=== PATIENT | female | born 2000 | race Caucasian/White ===

== ENCOUNTER 2021-01-19 10:47 | Outpatient (REF) | payer MEDICARE, MEDICAID, SELFPAY ==
[2021-01-19 13:43] LABS: MANUAL DIFF FLAG NO
[2021-01-19 13:54] LABS: Basophils Percent Auto 0.8 % (0-2); Eosinophils Absolute Auto 0.1 X10*3/uL (0.0-0.4); Eosinophils Percent Auto 2.5 % (0-4); Hematocrit 37.3 % (37-47); Hemoglobin 12.4 g/dl (12.0-16.0); Imm Gran Abs Auto 0.01 X10*3/uL (0.00-0.03); Imm Gran Pct Auto 0.2 % (0.0-0.4); Lymphocytes Percent Auto 38.5 % (20-40); Mean Corpuscular HGB Conc 33.2 g/dl (31.0-35.0); Mean Corpuscular Hemoglobin 30.2 pg (27.0-33.0); Mean Platelet Volume 11.7 fL (9.4-12.3); Monocytes Absolute Auto 0.4 X10*3/uL (0.1-1.2); Neutrophils Absolute Auto 2.7 X10*3/uL (2.0-8.3); Platelet Count 189 X10*3/uL (160-400); Red Cell Distribution Width 12.8 % (11.0-16.0); White Blood Count 5.3 X10*3/uL (4.8-10.8)
[2021-01-19 14:42] LABS: Alanine Aminotransferase 10 U/L (0-31); Albumin Level 4.6 g/dL (3.5-5.0); Alkaline Phosphatase 46 U/L (39-117); Anion Gap 11 (12-20); Aspartate Amino Transferase 17 U/L (5-31); Bilirubin Total 0.8 mg/dL (0.0-1.0); Blood Urea Nitrogen 13 mg/dL (9-16); Calcium 9.3 mg/dL (8.4-10.2); Carbon Dioxide 24 mmol/L (22-29); Chloride 107 mmol/L (96-108); Cholesterol 115 mg/dL; Estimated Glomerular Filt Rate > 60; Glucose Fasting 76 mg/dL (60-99); HDL Cholesterol 49 mg/dL; Iron 109 mcg/dL (30-160); LDL Cholesterol Calculated 59 mg/dl; Percent Iron Saturation 34 % (15-50); Potassium 4.4 mmol/L (3.3-5.1); Sodium 138 mmol/L (135-145); Total Iron Binding Capacity 324 mcg/dL (228-428); Total Protein 7.4 g/dL (6.5-8.0); Triglycerides 36 mg/dL; Unsaturated Iron Binding 215 ug/dL
[2021-01-19 14:45] LABS: TSH reflex Free T4 0.93 uIU/mL (0.32-4.0); Vitamin D 25-OH Total 14.2 ng/mL (>30)
[2021-01-19 14:50] LABS: Rheumatoid Factor < 15.0 IU/mL (<15.0)
[2021-01-19 15:34] LABS: Syphilis Screen Nonreactive (Nonreactive)
[2021-01-20 08:44] LABS: HBc Num1 0.05 S/CO (0.00-0.79); HBsAGNum1 0.18 S/CO (0.00-0.99); HIV AB/AG Nonreactive (Nonreactive); Hepatitis B Core Antibody Nonreactive (Nonreactive); Hepatitis B Surface Antigen Negative (Negative)
[2021-01-20 08:50] LABS: HBS Num1 0.62 mIU/mL (0-7.99); ~Hepatitis B Surface Antibody NONREACTIVE (Nonreactive)
[2021-01-20 09:15] LABS: ~HepC Num1 0.07 S/CO (0.00-0.79); ~Hepatitis C Antibody Nonreactive (Nonreactive)
[2021-01-23 11:46] LABS: Anti Nuclear Antibody Screen POSITIVE (NEGATIVE)
== END 2021-01-19 10:48 | disposition home or self-care (01) ==
LOC: HO.HMGCLDS 10:47
PROVIDERS: PCP Internal Medicine; Visit Provider Internal Medicine
DX: Z00.00 Encounter for general adult medical examination without abnormal findings (principal); Z11.3 Encounter for screening for infections with a predominantly sexual mode of transmission; Z84.0 Family history of diseases of the skin and subcutaneous tissue; Z82.61 Family history of arthritis
CPT/HCPCS: 36415; 80053; 80061; 82306; 83540; 84443; 85025; 86038; 86039; 86431; 86704; 86706; 86780; 86803; 87340; 87389

== ENCOUNTER 2021-02-02 14:35 | Outpatient (REF) | payer MEDICARE, MEDICAID, SELFPAY ==
--- NOTE | ~2021-02-02 | US_ITS ---
EXAMINATION: US DIAGNOSTIC ULTRASOUND BREAST, LEFT CLINICAL INFORMATION: 21-year-old with chronic palpable mass upper outer left breast for over one year. Patient perceives probable increase in size. No prior imaging. COMPARISON: None. TECHNIQUE: Ultrasound left breast is targeted to the area of clinical concern. Grayscale imaging and color Doppler are performed without and with harmonics. FINDINGS: The palpable finding 1:00 position 8 cm from nipple corresponds to a macrolobulated solid circumscribed mass measuring 2.2 x 0.7 x 1.7 cm. There is scattered internal color flow on Doppler. There is no skin thickening or edema tracking in soft tissue planes. No focal duct ectasia or architectural abnormality. Results are discussed with the patient and her mother at time of visit. The palpable finding most likely represents a benign fibroadenoma. Management options are discussed. Since the finding is believed to have slowly increased in size and is currently 2.2 cm in greatest dimension, ultrasound-guided core biopsy would be reasonable to confirm fibroadenoma. If this is not performed, then serial follow-up ultrasound would be recommended to document stability. At this time, patient and her mother prefer serial ultrasound follow-up. US/US breast LT limited IMPRESSION: Solid macrolobulated circumscribed mass 1:00 position 2.2 x 0.7 x 1.7 cm, likely fibroadenoma. ASSESSMENT: BI-RADS 3: Probably Benign RECOMMENDATION: Consider ultrasound-guided core sampling. If biopsy is not anticipated, then short interval six-month follow-up diagnostic left breast ultrasound would be recommended. This patient's information was entered into a reminder system with a target due date for their next breast imaging.
== END 2021-02-02 14:36 | disposition home or self-care (01) ==
LOC: HO.MAMMO 14:35
PROVIDERS: Visit Provider Internal Medicine
DX: N63.21 Unspecified lump in the left breast, upper outer quadrant (principal)
CPT/HCPCS: 76642

== ENCOUNTER 2021-08-05 13:59 | Outpatient (REF) | payer MEDICARE, MEDICAID, SELFPAY ==
--- NOTE | ~2021-08-05 | US_ITS ---
EXAMINATION: US DIAGNOSTIC ULTRASOUND BREAST, LEFT CLINICAL INFORMATION: 21-year-old with probable fibroadenoma for short interval six-month follow-up. COMPARISON: Targeted ultrasound left breast 02/02/2021. TECHNIQUE: Ultrasound left breast is targeted to the upper breast. Grayscale imaging and color Doppler are performed without and with harmonics. FINDINGS: The probable fibroadenoma 1:00 position 8 cm from nipple is similar in size and contour and echogenicity to initial ultrasound 02/02/2021. There is no interval new dominant mass or architectural abnormality or focal duct ectasia. Current measurements are 2.3 x 0.6 x 1.6 cm. Prior measurements are 2.2 x 0.7 x 1.7 cm. Results are discussed with the patient and her mother at time of visit. US/US breast LT limited IMPRESSION: Stable mass 1:00 left breast, likely fibroadenoma. ASSESSMENT: BI-RADS 3: Probably Benign RECOMMENDATION: 1 year follow-up targeted left breast ultrasound, due in 6 months. This patient's information was entered into a reminder system with a target due date for their next breast imaging.
== END 2021-08-05 14:00 | disposition home or self-care (01) ==
LOC: HO.MAMMO 13:59
PROVIDERS: Visit Provider Internal Medicine
DX: N63.21 Unspecified lump in the left breast, upper outer quadrant (principal)
CPT/HCPCS: 76642

== ENCOUNTER 2022-02-01 13:08 | Outpatient (REF) | payer MEDICARE, MEDICAID, SELFPAY ==
--- NOTE | ~2022-02-01 | US_ITS ---
EXAMINATION: US DIAGNOSTIC ULTRASOUND BREAST, BILATERAL CLINICAL INFORMATION: Six-month follow-up left breast lesion 1 o'clock position 8 cm from the nipple as well as bilateral breast bloody discharge. COMPARISON: 08/05/2021 and 02/02/2021. TECHNIQUE: Ultrasound of the breasts were performed with real-time laboy scale imaging and color Doppler. FINDINGS: There is again noted to be a stable circumscribed hypoechoic lesion with distal sound enhancement and no distal sound shadowing which has internal vascularity. It measures approximately 1.8 x 1.5 x 0.7 cm in size where previously it measured 2.2 x 0.7 x 1.7 cm on study of 02/02/2021 and 2.3 x 0.6 x 1.6 cm in size on study of 08/05/2021. No duct ectasia, or edema in the soft tissue planes is seen bilaterally. Recommend clinical follow-up for the bilateral nipple discharge. Results are discussed with the patient at time of visit. US/US breast LT limited IMPRESSION: Stable appearance of left breast mass which likely represents a fibroadenoma. One-year follow-up study is suggested. ASSESSMENT: BI-RADS 3: Probably Benign. RECOMMENDATION: Diagnostic ultrasound in 12 months. Clinical follow-up for bilateral breast bloody nipple discharge. This patient's information was entered into a reminder system with a target due date for their next ultrasound.
--- NOTE | ~2022-02-01 | US_ITS ---
EXAMINATION: US DIAGNOSTIC ULTRASOUND BREAST, BILATERAL CLINICAL INFORMATION: Left breast mass. Bilateral nipple discharge.. COMPARISON: February 01, 2022 and studies dating back to February 02, 2021. TECHNIQUE: Ultrasound of the breast is performed with real-time laboy scale imaging and color Doppler. FINDINGS: Right breast: There is no solid mass, architectural abnormality, duct ectasia, abnormal filling defects within a duct, or edema in the soft tissue planes. Left breast: There is again noted to be a stable circumscribed hypoechoic lesion with distal sound enhancement and no distal sound shadowing which has internal vascularity. It measures approximately 1.8 x 1.5 x 0.7 cm in size where previously it measured 2.2 x 0.7 x 1.7 cm on study of 02/02/2021 and 2.3 x 0.6 x 1.6 cm in size on study of 08/05/2021. No duct ectasia, or edema in the soft tissue planes is seen bilaterally. Recommend clinical follow-up for the bilateral nipple discharge. Results are discussed with the patient at time of visit. US/US breast RT limited IMPRESSION: Stable appearance of left breast mass which likely represents a fibroadenoma. One-year follow-up study is suggested. No retroareolar abnormality appreciated bilaterally. ASSESSMENT: BI-RADS 3: Probably Benign. RECOMMENDATION: Diagnostic ultrasound in 12 months. Clinical follow-up for bilateral breast bloody nipple discharge. This patient's information was entered into a reminder system with a target due date for their next ultrasound.
== END 2022-02-01 13:09 | disposition home or self-care (01) ==
LOC: HO.MAMMO 13:08
PROVIDERS: PCP Internal Medicine; Visit Provider Internal Medicine
DX: N63.20 Unspecified lump in the left breast, unspecified quadrant (principal); N64.52 Nipple discharge
CPT/HCPCS: 76642

== ENCOUNTER → 2022-12-21 14:28 | Outpatient (BNVA) | payer MEDICARE, MEDICAID, SELFPAY | PROVIDERS: PCP Internal Medicine; Visit Provider Surgery | DX: N63.21 Unspecified lump in the left breast, upper outer quadrant (principal) | CPT/HCPCS: 99202 ==

== ENCOUNTER → 2023-03-07 11:00 | Outpatient (BNV) | payer MEDICARE, MEDICAID, SELFPAY | PROVIDERS: PCP Internal Medicine; Visit Provider Radiology Diagnostic Radiology | DX: D24.9 Benign neoplasm of unspecified breast (principal) | CPT/HCPCS: 76642 ==

== ENCOUNTER 2023-03-07 11:27 | Outpatient (REF) | payer MEDICARE, MEDICAID, SELFPAY ==
--- NOTE | ~2023-03-07 | US_ITS ---
EXAMINATION: US DIAGNOSTIC ULTRASOUND BREAST, LEFT CLINICAL INFORMATION: 6 month interval follow-up (fourth, to complete two-year stability) left breast oval mass at the 1:00 position. COMPARISON: 02/01/2022, 08/05/2021, 02/02/2021. TECHNIQUE: Ultrasound of the left breast is performed with real-time laboy scale imaging and color Doppler. FINDINGS: There is a stable oval circumscribed hypoechoic mass with good through transmission, a small amount of internal color Doppler signal, wider than tall, at the 1:00 axis left breast, 4 cm from the nipple, currently measuring 2.2 x 0.9 x 2.0 cm (previously reported at 1.8 x 1.5 x 0.7 cm, and on baseline exam 2.3 x 0.6 x 1.6 cm). This finding is most consistent with a stable fibroadenoma and is benign. No further follow-up deemed necessary. Results were discussed with the patient at time of visit. US/US breast LT limited mamm only IMPRESSION: Stable left breast 1:00 fibroadenoma, which has now been stable over a two-year period indicating benignity. No further follow-up recommended. Clinical management advised as indicated. ASSESSMENT: BI-RADS 2: Benign RECOMMENDATION: 1. Patient should be managed based on the clinical impression. 2. Otherwise, routine annual screening mammography at age 41. This patient's information was entered into a reminder system with a target due date for their next mammogram.
== END 2023-03-07 11:28 | disposition home or self-care (01) ==
LOC: HO.MAMMO 11:27
PROVIDERS: PCP Internal Medicine; Visit Provider Internal Medicine
DX: N63.21 Unspecified lump in the left breast, upper outer quadrant (principal)
CPT/HCPCS: 76642

== ENCOUNTER 2023-04-06 11:23 | Outpatient (AMB) | payer MEDICARE, MEDICAID, SELFPAY ==
[2023-04-06 11:34] VITALS: BP 110/68; PULSE 61; O2SAT 99; BMI 17.0
--- NOTE | 2023-04-06 11:34 | A.OFFPC_ITS ---
Vital Signs 04/06/23 11:34 Height 5 ft 4 in Weight 99 lb 4 oz BMI 17.0 BP 110/68 Blood Pressure Location Lt brachial Position Sitting Pulse 61 Pulse Source Pulse Oximeter Pulse Oximetry (%) 99 Oxygen Delivery Method Room Air Intake Visit Reasons: Breathing different/Post COVID/Beginning Feb Intake Note: pt says since she had covid she has a cough that she will see drops of blood in her hand when she coughs and she stats she has been breathing different Allergies apple [APPLE] Allergy (Intermediate, Unverified 07/03/23 23:30) SWELLING pineapple [PINEAPPLE] Allergy (Intermediate, Unverified 07/03/23 23:30) SWELLING SEASONAL ALLERGIES Allergy (Mild, Uncoded 07/03/23 23:30) UNKNOWN Medication List - Last Reconciled 07/03/23 by Peggy Rosario MD No Known Home Meds Tobacco use date assessed: 04/06/23 Dental Screening Dental Screen Date: 04/06/23 Did you have a dental visit in the last 12 months?: No Did you have a dental problem in the last 6 months where you did not have access to dental care?: No Was dental information given to patient?: No HPI Breathing different/Post COVID/Beginning Sept HPI Details 23-year-old lady here today complaining of a lingering cough since she contracted COVID a month ago, accompanied by difficulty taking a deep breath, after coughing. 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 Positive SHYLA (antinuclear antibody) Family history of rheumatoid arthritis Family history of lupus erythematosus Breast mass, left Family History Father Mental health disorder Mother Rheumatoid arthritis SLE (systemic lupus erythematosus related syndrome) Hyperthyroidism Essential hypertension Social History Housing: Apartment Housing Other:: pt lives with mother Alcohol intake: current Patient Tobacco Use Status: Never used Tobacco e-Cigarette/Vaping Use: Never Used Second Hand Smoke Exposure: No service: No Current occupational status: unemployed Cognitive needs: No Hearing needs: No Vision needs: No Female Reproductive History Menstrual Age of Menarche: 13 Questionnaire PHQ-9 Over the last 2 weeks, how often have you been bothered by any of the following problems? 1. Little interest or pleasure in doing things: not at all 2. Feeling down, depressed, or hopeless: not at all 3. Trouble falling or staying asleep, or sleeping too much: more than half the days 4. Feeling tired or having little energy: not at all 5. Poor appetite or overeating: not at all 6. Feeling bad about yourself - or that you are a failure or have let yourself or your family down: not at all 7. Trouble concentrating on things, such as reading the newspaper or watching television: not at all 8. Moving or speaking so slowly that other people could have noticed. Or the opposite - being so fidgety or restless that you have been moving around a lot more than usual: not at all 9. Thoughts that you would be better off or of hurting yourself in some way: not at all Total score: 2 Depression Screening Interpretation: Negative Depression Screening Done: Yes 25417 - PHQ-9 Billing: Yes Source: Developed by Drs. Neel Lagunas, Hoa Pirde, Simon Jacques and colleagues, with an educational carmina from [employer]. Thrive Questionnaire Date Thrive assessed: 04/06/23 I am a: Patient What is your living situation today?: I have a steady place to live Within the past 12 months, did the food you bought not last and you didn't have the money to get more?: Never true Within the past 12 months, did you worry whether your food would run out before you got money to buy more?: Never true Do you have trouble paying for medicines?: No Do you have trouble getting transportation to medical appointments?: No Do you have trouble paying your heating and electricity bill?: No Do you have trouble taking care of your child, family member or friend?: No Do you have trouble with day-to-day activities such as bathing, preparing meals, shopping, managing finances, etc.?: No Are you currently unemployed and looking for a job?: No Are you interested in more education?: No AUDIT C Alcohol Use Questionnaire (AUDIT-C) 1. How often do you have a drink containing alcohol?: Monthly or less 2. How many drinks containing alcohol do you have on a typical day when you are drinking?: 1 or 2 3. How often do you have six or more drinks on one occasion?: Never Total Score: 1 OPAL-7 AMB Questionnaire OPAL-7 Date OPAL - 7 assessed: 04/06/23 Feeling nervous, anxious, or on edge: 0 = Not at all Not being able to stop or control worryin = Not at all Worrying too much about different things: 1 = Several days Trouble relaxin = Several days Being so restless that it is hard to sit still: 1 = Several days Becoming easily annoyed or irritable: 1 = Several days Feeling afraid as if something awful might happen: 0 = Not at all Total OPAL-7 score (0-4 normal; 5-9 mild; 10-14 moderate; 15-21 severe): 4 Source: Developed by Drs. Neel Lagunas, Hoa Pride, Simon Jacques and colleagues, with an educational carmina from [employer]. OPAL-7 Assessment Billing OPAL-7 Assessment Tool: OPAL-7 Assessment 37138 Review of Systems Const Reports as per HPI and Reports no additional complaints ENT Reports no additional complaints Card Denies chest pain, Denies chest pain with activity, Denies syncope, Denies rapid heart rate, Denies irregular heart rhythm, Denies lightheadedness and Denies dyspnea on exertion Resp Denies chest congestion, Denies pain on inspiration, Denies dyspnea on exertion and Denies wheezing GI Reports no additional complaints Musc Reports no additional complaints Neuro Denies syncope Psych Reports no additional complaints Endo Reports no additional complaints Nicolas/Lymph Reports no additional complaints Aller/Immun Denies wheezing Physical exam (Primary Care) Vital Signs: Last Vital Signs Pulse 61 04/06/23 11:34 BP 110/68 04/06/23 11:34 Pulse Ox 99 04/06/23 11:34 Oxygen Delivery Method Room Air 04/06/23 11:34 BMI result Body Mass Index 17.0 Tobacco/Smoking Status: Tobacco use Status Tobacco use date assessed 04/06/23 04/06/23 11:40 Patient Tobacco Use Status Never used Tobacco 04/06/23 11:40 e-Cigarette/Vaping Use Never Used 04/06/23 11:40 PHQ-9: PHQ-9 Score PHQ-9: Total score 2 07/03/23 23:35 Depression Screening Interpretation: Negative Thrive Assessment: Date of Thrive Assessment Date Thrive assessed 04/06/23 04/06/23 11:49 Const Other: Alert oriented x3, no acute distress noted, ambulatory normal gait Orientation/consciousness: patient oriented x3 HENMT Mouth: Normal oral and palatal mucosa present, tongue normal, oropharynx normal and moist mucous membranes Neck Neck: Yes normal visual inspection, Yes full ROM and Yes no lymphadenopathy Thyroid: Thyroid normal Resp Auscultation: clear to auscultation bilaterally Cardio Other: S1-S2 present, regular rate and rhythm GI Other: Normal bowel sounds, soft, nontender Skin General skin exam: no rashes or lesions noted Neuro General: patient oriented x3, tone normal, moves all extremities, Normal light touch and pain sensation, no focal motor deficits and CN's II-XI intact bilaterally Extrem General: Yes full ROM, Yes no joint enlargement, Yes no clubbing, cyanosis or edema, Yes no calf tenderness and Yes normal gait Assessment and Plan Assessment & Plan (1) 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: Code(s): R05.3 - Chronic cough; U09.9 - Post COVID-19 condition, unspecified Plan: Ordered chest x-ray and CBC with differential, patient given reassurance that cough is most likely post inflammatory effect of previous COVID infection Orders: Orders XR chest 2V 04/06/23 R05.3 - Chronic cough, U09.9 - Post COVID-19 condition, unspecified Complete Blood Count Auto Diff 04/06/23 R05.3 - Chronic cough, U09.9 - Post COVID-19 condition, unspecified Coding Level of Care Code Est Pt Level 3 (59463) Diagnoses [id number] syndrome manifesting as chronic cough R05.3; U09.9 Additional Codes OPAL-7 Assessment Billing - OPAL-7 Assessment Tool: OPAL-7 Assessment 61590 ([id number])
== END 2023-04-06 12:21 | disposition home or self-care (01) ==
LOC: HO.HMGC 11:23
PROVIDERS: PCP Internal Medicine; Visit Provider Internal Medicine
DX: R05.3 Chronic cough (principal); U09.9 Post COVID-19 condition, unspecified
CPT/HCPCS: 99213

== ENCOUNTER 2023-06-19 15:28 | Outpatient (AMB) | payer MEDICARE, MEDICAID, SELFPAY ==
--- NOTE | 2023-06-19 15:48 | A.OFFVIS_ITS ---
Intake Vital Signs 06/19/23 15:57 Height 5 ft 4 in Weight 95 lb 6 oz BMI 16.4 BP 112/67 Blood Pressure Location Lt brachial Position Sitting Pulse 84 Intake Visit Reasons: left breast mass, 6 month follow up Intake Note: Patient is seen in office for 6 month follow up visit, breast exam. Pt c/o: feels that the lump comes and goes, denies pain or discomfort, redness, discoloration mm:03/07/23 Quality Process Engineer Required: No Accompanied by: Self / Same As Patient Allergies apple [APPLE] Allergy (Intermediate, Unverified 04/26/23 14:45) SWELLING pineapple [PINEAPPLE] Allergy (Intermediate, Unverified 04/26/23 14:45) SWELLING SEASONAL ALLERGIES Allergy (Mild, Uncoded 04/26/23 14:45) UNKNOWN HPI HPI Comments History of Present Illness Details 23-year-old female patient returning for his 6 month follow-up exa mination after previous evaluation in December 2022. She noted a lump in the left breast at the 2 o'clock position which was 1st identified when she was 18 years old. She underwent evaluation with ultrasounds several times over the last few years. No significant change in the size or shape of the lesion is noted. Findings were felt to be consistent with fibroadenoma. She denies a previous history of breast problems or breast surgery in her family history is negative for breast cancer. She denies any significant change since her last evaluation. [facility] Medical History [id number] syndrome manifesting as chronic cough Positive SHYLA (antinuclear antibody) Family history of rheumatoid arthritis Family history of lupus erythematosus Breast mass, left Family History Father Mental health disorder Mother Rheumatoid arthritis SLE (systemic lupus erythematosus related syndrome) Hyperthyroidism Essential hypertension Social History Housing: Apartment Housing Other:: pt lives with mother Alcohol intake: current Patient Tobacco Use Status: Never used Tobacco e-Cigarette/Vaping Use: Never Used Second Hand Smoke Exposure: No service: No Current occupational status: unemployed Cognitive needs: No Hearing needs: No Vision needs: No Female Reproductive History Menstrual Age of Menarche: 13 Review of Systems Const All systems reviewed & are unremarkable except as noted in HPI and below Physical Exam Vital Signs: Last Vital Signs Pulse 84 06/19/23 15:57 BP 112/67 06/19/23 15:57 BMI result Body Mass Index 16.4 Const General: no acute distress Nutritional Appearance: well nourished Orientation/consciousness: patient oriented x3 Limitations: no limitations HEENT Head: Yes normocephalic and Yes atraumatic Ears: hearing grossly normal bilaterally Chest Other: Left breast with palpable nodule located in the 2 o'clock position, 1.5 cm, smooth margins, mobile within the breast tissue without fixation to skin or chest wall. Findings are most consistent with a fibroadenoma. There is slight tenderness to palpation. Resp Effort & Inspection: normal respiratory effort Skin Other: Warm, dry, no rash Neuro General: patient oriented x3 Extrem General: Yes no clubbing, cyanosis or edema Assessment & Plan Assessment & Plan (1) Fibroadenoma: Code(s): D24.9 - Benign neoplasm of unspecified breast Qualifiers: Laterality: left Qualified Code(s): D24.2 - Benign neoplasm of left breast (2) Breast mass, left: Code(s): N63.20 - Unspecified lump in the left breast, unspecified quadrant Qualifiers: Breast mass location: unspecified quadrant Qualified Code(s): N63.20 - Unspecified lump in the left breast, unspecified quadrant Plan 23-year-old female patient with a stable palpable lump in the left breast felt to be a fibroadenoma by ultrasound. On examination she does have a palpable mass which is rubbery mobile within the breast tissue consistent with a fibroma. There has been no significant change in the past 6 months in the patient is uninterested in excision this time. She was encouraged to continue to perform self examinations and call for any concerns. Coding Level of Care Code Est Pt Level 3 (15010) Diagnoses Fibroadenoma of left breast D24.2 Laterality: left Mass of left breast, unspecified quadrant N63.20 Breast mass location: unspecified quadrant
[2023-06-19 15:57] VITALS: BP 112/67; PULSE 84; BMI 16.4
== END 2023-06-19 16:01 | disposition home or self-care (01) ==
PROVIDERS: PCP Internal Medicine; Visit Provider Surgery
DX: D24.2 Benign neoplasm of left breast (principal)
CPT/HCPCS: 99213

== ENCOUNTER → 2023-06-19 15:28 | Outpatient (BNVA) | payer MEDICARE, MEDICAID, SELFPAY | PROVIDERS: PCP Internal Medicine; Visit Provider Surgery | DX: D24.2 Benign neoplasm of left breast (principal) | CPT/HCPCS: 99212 ==

== ENCOUNTER 2024-08-08 11:47 | Outpatient (AMB) | payer MEDICARE, MEDICAID, SELFPAY ==
--- NOTE | 2024-08-08 11:58 | AM.OFFWIN_ITS ---
Intake Vital Signs 08/08/24 12:04 BP 100/62 Blood Pressure Location Lt brachial Position Sitting Pulse 72 Pulse Source Pulse Oximeter Pulse Oximetry (%) 98 Oxygen Delivery Method Room Air Intake Visit Reasons: EP-whole body rash Intake Note: Patient here for for hives/rash all over body that has been present for about 1 month, not always itchy and pretty dry patches. Patient Tobacco Use Status: Never used Tobacco Allergies apple [APPLE] Allergy (Intermediate, Unverified 08/08/24 12:04) SWELLING pineapple [PINEAPPLE] Allergy (Intermediate, Unverified 08/08/24 12:04) SWELLING SEASONAL ALLERGIES Allergy (Mild, Uncoded 08/08/24 12:04) UNKNOWN Do you need a note to return to daycare/school/sports/work: No HPI HPI Comments History of Present Illness Details History of Present Illness - The patient is a 24-year-old female pr esenting with a skin rash. - The rash was first noticed one month a go on the right arm and subsequently spread to the patient's back, chest, and neck. Denies rash on her legs. - The rash is characterized as dry, scal y patches, with occasional itching, particularly exacerbated by hot water exposure. - The patient denies introducing new soa ps, detergents, or lotions but notes a potential link to recently worn but unwashed clothing. - Despite mild pruritus, the rash has no t significantly worsened in extent or severity. Physical Exam General: Cooperative, healthy appearing, comfortable, no acute distress and well developed Orientation: Patient oriented x3 Limitations: No limitations Head: Normal to inspection Ears: Hearing grossly normal bilaterally Nose: Normal external nose present Face and sinus: Normal facial exam Eyes: Appearance normal, both eyes and all related structures Neck: Normal visual inspection and Yes full ROM Respiratory: Normal respiratory effort and able to speak in complete sentences. Skin: Dry, scaly 0.5cm circular erythematous rash; 2 to 3 spots on left upper and inner arm, 5-6 on left side neck/chest, 2 to 3 spots on right mid back Neuro: Patient oriented x3 Extremities: Normal to inspection [facility] Medical History [id number] syndrome manifesting as chronic cough Positive SHYLA (antinuclear antibody) Family history of rheumatoid arthritis Family history of lupus erythematosus Breast mass, left Family History Father Mental health disorder Mother Rheumatoid arthritis SLE (systemic lupus erythematosus related syndrome) Hyperthyroidism Essential hypertension Social History Housing: Apartment Housing Other:: pt lives with mother Alcohol intake: current Patient Tobacco Use Status: Never used Tobacco e-Cigarette/Vaping Use: Never Used Second Hand Smoke Exposure: No service: No Current occupational status: unemployed Cognitive needs: No Hearing needs: No Vision needs: No Female Reproductive History Menstrual Age of Menarche: 13 Review of Systems Const All systems reviewed & are unremarkable except as noted in HPI and below Physical Exam Vital Signs: Last Vital Signs Pulse 72 08/08/24 12:04 BP 100/62 08/08/24 12:04 Pulse Ox 98 08/08/24 12:04 Oxygen Delivery Method Room Air 08/08/24 12:04 Assessment & Plan Assessment & Plan (1) Atopic dermatitis, mild: Code(s): L20.9 - Atopic dermatitis, unspecified Plan: Initiate topical corticosteroid therapy with moderate potency to manage the presentation of atopic dermatitis. The approach includes mitigating potential allergens or irritants, such as ensuring that all new clothing is washed before use. Emphasize the importance of reducing hot water exposure to prevent rash/eczema exacerbation. The treatment plan should address both potential allergic causes and eczema, with a follow-up if there is no improvement or wor sening condition. Patient was informed and verbally consented to the use of an ambient scribe for clinic note documentation during this visit. Medications: New triamcinolone acetonide 0.1% 1 appl topical BID 30 grams 0RF Coding Level of Care Code Est Pt Level 3 (96916) Diagnoses Atopic dermatitis, mild L20.9
[2024-08-08 12:04] VITALS: BP 100/62; PULSE 72; O2SAT 98
--- OUTSIDE RECORDS SUMMARY | 2024-08-08 12:48 | XMS_ITS | Clinical Summary ---
Author Organization [employer] Address [address] [place] [address] Care Team Providers Care Cleaning Crew Member Name Role Phone Unavailable Primary Care Provider Unavailabl e Active Problems No known active problems Social History Tobacco Use Types Packs/Day Years Used Date Smoking Tobacco: Never Assessed Comments Unknown Sex and Gender Information Value Date Recorded Sex Assigned at Female 01/15/2024 8:08 AM EDT Legal Sex Female 8:07 AM EDT Gender Identity Female 01/15/2024 8:08 AM EDT Sexual Orientation Straight 01/15/2024 8: 13 AM EDT Plan of Treatment Upcoming Encounters Date Type Department Care Team (Late st Contact Info) Description 09/17/2024 10:00 AM EDT Office Visit [facility] [address] [place] [address] Kunal Turner Health Maintenance Due Date Last Done Comments Chlamydia and Gonorrhea Screening 2001 Dental Oral Exam 2001 Dental Prophylaxis 2001 Depression Screening 2001 HIV Screening 2001 SDOH Screening 2001 Alcohol/Substance Use Screening 2013 Tobacco Screening 2013 Family Planning (PISQ) 01/26/2016 HPV Vaccines (1 - 3-dose series) 01/26/2016 Hepatitis C Screening 2019 DTaP/Tdap/Td Vaccines (1 - Tdap) 01/26/2020 Hepatitis B Vaccines (1 of 3 - 19+ 3-dose series) 01/26/2020 Pap Smear 2022 COVID-19 Vaccine ( - 2023-2 5 season) 2024 Influenza Vaccine (#1) 2024 Dental X-Ray: Bitewings 01/15/2025 01/15/2024 Dental X-Ray: Full Mouth 01/15/2027 01/15/2024 Zoster Vaccines (1 of 2) 2051 RSV Patients and Pa tients Aged 60 years or older (1 - 1-dose 75+ series) 01/26/2076 HIB Vaccines Aged Out No longer eligi ble based on patient's age to complete this topic Hepatitis A Vaccines Aged Out No long er eligible based on patient's age to complete this topic IPV Vaccines Aged Out No longer eligi ble based on patient's age to complete this topic Meningococcal Vaccine Aged Out No hugo marcelo eligible based on patient's age to complete this topic Pneumococcal Vaccine: Pediat rics (0 to 5 Years) and At-Risk Patients (6 to 49) Years) Aged Out No longer elig ible based on patient's age to complete this topic RSV under 20 months Aged Out No longe r eligible based on patient's age to complete this topic Rotavirus Vaccines Aged Out No longer eligible based on patient's age to complete this topic Procedures Procedure Name Priority Date/Time Associated Diagnosis Comments PANORAMIC RADIOGRAPHIC IMAGE Routine 01/15/2024 11:30 AM EDT BITEWING - SINGLE RADIOGRAPHIC IMAGE Routine 01/15/2024 11:30 AM EDT from Last 3 Months or Most Recently Relevant to Health Maintenance Insurance [facility] MEDICAID STAND ADULT
--- OUTSIDE RECORDS SUMMARY | 2024-08-08 12:48 | XMS_ITS | Clinical Summary ---
Author Organization [facility] [address] [place] [address] [place] [address] Phone Care Team Providers Care Infant Room Teacher Name Role Phone Physician, No Pcp Primary Care Provider Unavaila ble Allergies No known active allergies Medications levonorgestreL (MIRENA) 21 mcg/24hr (up to 8 yrs) 52 mg IUD 1 Each by Intrauterine route Once. 2 07/08/19 27 Active Active Problems Problem Noted Date Diagnosed Date Cyst of left breast 05/27/2024 Encounters Date Type Department Care Team Description 07/02/2024 9:46 AM EST - 07/02/2024 11:59 PM EST Hospital Encounter Radiology Department - [address] [phone] Discharge Disposition: Home or Self Care 07/02/2024 Telephone Obstetrics and Gynecology - [address] [phone] Shannon Suazo, CHELSEA 05/30/2024 Telephone Obstetrics and Gynecology - [address] [phone] Brandi Meyers MD Breast Problem 05/27/2024 2:45 PM EST Office Visit Obstetrics and Gynecology - [address] [phone] Brandi Meyers MD Encounter for gynecological examination with abnormal finding (Primary Dx); Screening for cervical cancer; Cyst of left breast 05/20/2024 3:45 PM EST Office Visit Obstetrics and Gynecology - [address] [phone] Shannon Suazo, CNM Breakthrough bleeding with IUD (Primary Dx); Abnormal uterine bleeding; IUD (intrauterine device) in place from Last 3 Months Surgical History Surgery Date Site/Laterality Comments OTHER SURGICAL HISTORY PROCEDURE: DENIES PREVIOUS SURGERY Medical History Medical History Date Comments Anxiety disorder DX:Anxiety diso rder Family History Medical History Relation Name Comments Breast cancer Neg Hx Colon cancer Neg Hx Ovarian cancer Neg Hx Pancreatic cancer Neg Hx Prostate cancer Neg Hx Uterine cancer Neg Hx Social History Tobacco Use Types Packs/Day Years Used Date Smoking Tobacco: Never Smokeless Tobacco: Never Alcohol Use Standard Drinks/Week Comments Never 0 (1 standard drink = 0.6 oz pur e alcohol) Comments No Sex and Gender Information Value Date Recorded Sex Assigned at Not on file Legal Sex Female 8:27 AM EST Gender Identity Not on file Sexual Orientation Not on file Obstetrics History Para Term AB IAB SAB Ectopic Multiple Livin g Live Births 1 1 1 0 Date Outcome GA Total Labor Labor/2nd/3rd Weight Sex Type Anes PTL Christa A1 A5 Name Clin 2018 SAB Last Filed Vital Signs Vital Sign Reading Time Taken Comments Blood Pressure 110/72 05/27/2024 3:01 PM EST Pulse 89 05/27/2024 3:01 PM EST Temperature - - Respiratory Rate 16 05/27/2024 3:01 PM EST Oxygen Saturation - - Inhaled Oxygen Concentration - - Weight 48 kg (105 lb 12.8 oz) 05/27/2024 3:01 PM EST Height 162.6 cm (5' 4 ) 05/27/2024 3:01 PM EST Body Mass Index 18.16 05/27/2024 3:01 PM EST Plan of Treatment Upcoming Encounters Date Type Department Care Team (Late st Contact Info) Description 08/29/2024 10:15 AM EDT Procedure visit Obstetrics and Gynecology [address] [phone] Brandi Meyers MD [address] [place], [place] Health Maintenance Due Date Last Done Comments COVID-19 Vaccine (#1) 2006 HPV Vaccines (1 - Risk 3-dos e series) 01/26/2012 Meningococcal B Vacine (1 of 2 - Standard) 2017 DTaP,Tdap,and Td Vaccines (1 - Tdap) 01/26/2020 Hepatitis B Vaccines (1 of 3 - 19+ 3-dose series) 01/26/2020 Pneumococcal Vaccine: Pediatrics (0 to 5 Years) and At-Risk Patients (6 to 64 Years) (1 of 2 - PCV) 01/26/2020 Depression Screening 05/21/2022 HIV Screening 05/21/2022 Hepatitis C Screening 05/21/2022 Medicare Annual Wellness Visit 05/21/2022 Social Influencers of Health Screening 05/21/2022 Influenza Vaccine (#1) 2024 Gonorrhea/Chlamydia Screening 05/20/2025, 08/03/2021 Cervical Cancer Screening: P ap Smear 05/27/2027 05/27/2024 HIB Vaccines Aged Out No longer eligi ble based on patient's age to complete this topic Hepatitis A Vaccines Aged Out No long er eligible based on patient's age to complete this topic IPV Vaccines Aged Out No longer eligi ble based on patient's age to complete this topic MMR Vaccines Aged Out No longer eligi ble based on patient's age to complete this topic Meningococcal ACWY Vaccine Aged Out N o longer eligible based on patient's age to complete this topic RSV Immunization Patients Under 20 months Aged Out No longer eligible b ased on patient's age to complete this topic Varicella Vaccines Aged Out No longer eligible based on patient's age to complete this topic Procedures Procedure Name Priority Date/Time Associated Diagnosis Comments US PELVIS NON OB COMPLETE W TRANSVAGINAL Routine 07/02/2024 10:20 AM EST Breakthrough bleeding with IUD Abnormal uterine bleeding PAP SMEAR Routine 05/27/2024 4:07 PM EST Screening for cervical cancer TRICHOMONAS VAGINALIS ANTIGEN Routine 05/20/2024 4:16 PM EST Breakthrough bleeding with IUD Abnormal uterine bleeding CHLAMYDIA TRACHOMATIS AND NEISSERIA GONORRHOEAE PCR Routine 05/20/2024 4:16 PM EST Breakthrough bleeding with IUD Abnormal uterine bleeding POC , URINE DIAGNOSTIC Routine 05/20/2024 4:10 PM EST Breakthrough bleeding with IUD Abnormal uterine bleeding from Last 3 Months Results * US Pelvis Non OB Complete w Transvaginal (07/02/2024 10:20 AM EST) Anatomical Region Laterality Modality Body, Pelvis Ultrasound 07/02/2024 10:4 4 AM EST Narrative 07/02/2024 10:51 AM EST Pelvic ultrasound. History abnormal uterine bleeding. Patient is IUD. No prior studies are available for comparison. Examination was performed transabdominally and transvaginally. Color Doppler ultrasound and duplex analysis of the ovarian vasculature was performed. Transvaginal study was limited due to insufficient bladder emptying and patient discomfort. Uterus was visualized measuring 8.3 x 3.2 x 4.3 cm. No focal lesions were identified within the uterus IUD wasn't better seen on transabdominal scan it appears to be in the lower uterine segment with superior and approximately 1.9 cm inferior to the fundal endometrium. Right ovary was visualized with a volume of 10.3 cc. There is arm small hypoechoic mass measuring 1.6 x 1.9 x 1.4 cm which could represent corpus luteum cyst. Normal arterial and venous flow was documented. Left ovary was visualized was normal size and echogenicity, volume 2 cc. Normal arterial and venous flow was documented in the left ovary. CONCLUSIONS: Abnormal position of the IUD. Provider was informed by secure message at the time of dictation. -------- FINAL REPORT -------- Dictated By: Elba Chavez Dictated Date: 07/02/2024 10:44 ET Assigned Physician: Elba Chavez Reviewed and Electronically Signed By: Elba Chavez Signed Date: 07/02/2024 10:51 ET Workstation ID: [id number] Transcribed By: Self Edit Transcribed Date: 07/02/2024 10:44 ET Procedure Note Elba Chavez MD - 07/02/2024 Pelvic ultrasound. History abnormal uterine bleeding. Patient is IUD. No prior studies are available for comparison. Examination was performed transabdominally and transvaginally. ColorDoppler ultrasound and duplex analysis of the ovarian vasculature wasperformed. Transvaginal study was limited due to insufficient bladderemptying and patient discomfort. Uterus was visualized measuring 8.3 x 3.2 x 4.3 cm. No focal lesions wereidentified within the uterus IUD wasn't better seen on transabdominal scanit appears to be in the lower uterine segment with superior andapproximately 1.9 cm inferior to the fundal endometrium. Right ovary wasvisualized with a volume of 10.3 cc. There is arm small hypoechoic massmeasuring 1.6 x 1.9 x 1.4 cm which could represent corpus luteum cyst.Normal arterial and venous flow was documented. Left ovary was visualizedwas normal size and echogenicity, volume 2 cc. Normal arterial and venousflow was documented in the left ovary. CONCLUSIONS: Abnormal position of the IUD. Provider was informed by securemessage at the time of dictation. -------- FINAL REPORT -------- Dictated By: Elba Chavez Dictated Date: 07/02/2024 10:44 ET Assigned Physician: Elba Chavez Reviewed and Electronically Signed By: Elba Chavez Signed Date: 07/02/2024 10:51 ET Workstation ID: [id number] Transcribed By: Self Edit Transcribed Date: 07/02/2024 10:44 ET us Shannon Suazo CNM IMG US PROCEDURES Final Result * Pap smear (05/27/2024 4:07 PM EST) Interpretation Negative for intraepithelial lesion or malignancy 06/03/2024 3:16 PM EST [facility] General Categorization Negative 06/03/2024 3:16 PM EST [facility] LMP 05/17/2024 06/03/2024 3:16 PM EST [facility] Specimen Adequacy Satisfactory for evaluation, endocervical/cota sformation zone component absent 06/03/2024 3:16 PM [facility] Pap Methodology Liquid Based Pap Test 06/03/2024 3:16 PM [facility] Disclaimer The Pap test is a screening test which carries an inherent false negative rate. These test results should be correlated with the patient's clinical findings and history. This Pap test was processed using an automated screening system. Technical cytopathology services provided by [facility], at [address] [place] [address] (CLIA # [id number]/Brenton Arrington MD, Manager Store.) 06/03/2024 3:16 PM [facility] Console Pap Interpretation Reported 06/03/2024 3:16 PM [facility] Brushing/Spatula Cervix uteri structure / Unknown 05/27/2024 4:07 PM EST 05/27/2024 4:07 PM EST Brandi Meyers MD LAB CYTOLOGY ORDERABLES Fin al Result Performing Organization Address City/[facility]/ZIP Co de Phone Number [facility] [address] [place] [address], * Trichomonas vaginalis antigen (05/20/2024 4:16 PM EST) Trichomonas vaginalis Negative Negative 05/20/2024 8:57 PM [facility] Swab Vaginal structure / Unknown Non-blood Collection / Unknown 05/20/2024 4:16 PM EST 05/20/2024 4:16 PM EST Shannon Suazo CNM LAB MICROBIOLOGY - GENE RAL ORDERABLES Final Result Performing Organization Address City/[facility]/ZIP Co de Phone Number [facility] [address] [place] [address], [place] [phone] * Chlamydia trachomatis and Neisseria gonorrhoeae molecular study (05/20/2024 4:16 PM EST) Neisseria gonorrhoeae PCR Negative Negative LAB MOLECULAR DIAGNOSTICS METHOD 05/21/2024 9:58 AM EST [facility] Chlamydia trachomatis PCR Negative Negative LAB MOLECULAR DIAGNOSTICS METHOD 05/21/2024 9:58 AM EST [facility] Swab Endocervical structure / Unknown Non-blood Collection / Unknown 05/20/2024 4:16 PM EST 05/20/2024 4:16 PM EST Shannon Suazo CNM LAB MICROBIOLOGY - GENE RAL ORDERABLES Final Result [facility] [address] [place] [address], * POC , urine manually resulted (05/20/2024 4:10 PM EST) HCG, Ur POC Negative Negative POC hCG Int QC Pass? Yes Yes Urine Urine specimen obtained by clean catch procedure / Unknown 05/20/2024 4:10 PM EST Shannon Suazo CNM POINT OF CARE TEST ENTE R/EDIT ORDERABLES Final Result from Last 3 Months Insurance MEDICARE MEDICAID - [place] Care Teams Infant Room Teacher Relationship Specialty Start Date End Date Physician, No Pcp PCP - General 07/02/24
== END 2024-08-08 12:52 | disposition home or self-care (01) ==
PROVIDERS: PCP Internal Medicine; Visit Provider Physician Assistant
DX: L20.9 Atopic dermatitis, unspecified (principal)

== ENCOUNTER → 2024-08-08 11:47 | Outpatient (BNVA) | payer MEDICARE, MEDICAID, SELFPAY | PROVIDERS: PCP Internal Medicine | DX: L20.9 Atopic dermatitis, unspecified (principal) | CPT/HCPCS: 99212 ==

== ENCOUNTER 2024-10-14 13:03 | Outpatient (AMB) | payer MEDICARE, MEDICAID, SELFPAY ==
--- NOTE | 2024-10-14 13:16 | A.OFFPC_ITS ---
Vital Signs 10/14/24 13:26 10/14/24 13:29 Height 5 ft 4 in Weight 106 lb 105 lb BMI 18.0 BP 110/70 Blood Pressure Location Lt brachial Position Sitting Respiration 16 Pulse 69 Pulse Source Pulse Oximeter Temp 98.3 F Temp Source Oral Pulse Oximetry (%) 98 Oxygen Delivery Method Room Air Intake Visit Reasons: Annual PE-looking for Referral-needs PE Intake Note: Pt is here today for her PE Is last menstrual period known: Yes Last menstrual period: 10/02/24 Allergies apple [APPLE] Allergy (Intermediate, Unverified 10/14/24 13:38) SWELLING pineapple [PINEAPPLE] Allergy (Intermediate, Unverified 10/14/24 13:38) SWELLING SEASONAL ALLERGIES Allergy (Mild, Uncoded 10/14/24 13:38) UNKNOWN Medication List - Last Reconciled 10/14/24 by Peggy Rosario MD cetirizine (Zyrtec) 10 mg PO DAILY PRN levonorgestrel (Mirena) intrauterine triamcinolone acetonide 0.1% 1 appl topical BID Tobacco use date assessed: 10/14/24 Dental Screening Dental Screen Date: 10/14/24 Did you have a dental visit in the last 12 months?: Yes Did you have a dental problem in the last 6 months where you did not have access to dental care?: No Was dental information given to patient?: Patient has dentist HPI Annual PE-looking for Referral-needs PE HPI Details 24-year-old lady here today for physical exam. She has seasonal allergies, currently taking cetirizine 10 mg as needed. declined TDap. Had Mirena IUD inserted 10/03/[address] Thomas are at [facility], and had a Pap done at the same day. Has been complaining of intermittent headache and palpitations accompanied by generalized joint pains mainly in her shoulders and hips. She states that mother has severe lupus erythematosus and would like to be checked for the disease. 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 Recently moved up here from [place] , where she used to live with her biologic father. Has been having frequent anxiety attacks lately, states that she is unable to get past emotional issues, constantly refers to the trauma that she had when she was living with her biological father. Would like to be referred for therapy, but does not want to start medication at present time. 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 Positive SHYLA (antinuclear antibody) Family history of rheumatoid arthritis Family history of lupus erythematosus Breast mass, left Family History Father Mental health disorder Mother Rheumatoid arthritis SLE (systemic lupus erythematosus related syndrome) Hyperthyroidism Essential hypertension Social History Housing: Apartment Housing Other:: pt lives with mother Alcohol intake: current Patient Tobacco Use Status: Never used Tobacco e-Cigarette/Vaping Use: Never Used Second Hand Smoke Exposure: No service: No Current occupational status: unemployed Cognitive needs: No Hearing needs: No Vision needs: No Female Reproductive History Menstrual Age of Menarche: 13 Date of last menstrual period: 10/02/24 Questionnaire PHQ-9 Over the last 2 weeks, how often have you been bothered by any of the following problems? 1. Little interest or pleasure in doing things: not at all 2. Feeling down, depressed, or hopeless: not at all 3. Trouble falling or staying asleep, or sleeping too much: not at all 4. Feeling tired or having little energy: several days 5. Poor appetite or overeating: not at all 6. Feeling bad about yourself - or that you are a failure or have let yourself or your family down: several days 7. Trouble concentrating on things, such as reading the newspaper or watching television: not at all 8. Moving or speaking so slowly that other people could have noticed. Or the opposite - being so fidgety or restless that you have been moving around a lot more than usual: not at all 9. Thoughts that you would be better off or of hurting yourself in some way: not at all Total score: 2 Depression Screening Interpretation: Negative Depression Screening Done: Yes 02356 - PHQ-9 Billing: Yes Source: Developed by Drs. Neel Lagunas, Simon Gibson and colleagues, with an educational carmina from [employer]. Thrive Questionnaire Date Thrive assessed: 10/14/24 I am a: Patient What is your living situation today?: I have a steady place to live Within the past 12 months, did the food you bought not last and you didn't have the money to get more?: Never true Within the past 12 months, did you worry whether your food would run out before you got money to buy more?: Never true Do you have trouble paying for medicines?: No Do you have trouble getting transportation to medical appointments?: No Do you have trouble paying your heating and electricity bill?: No Do you have trouble taking care of your child, family member or friend?: No Do you have trouble with day-to-day activities such as bathing, preparing meals, shopping, managing finances, etc.?: No Are you currently unemployed and looking for a job?: I choose not to answer this question Are you interested in more education?: I choose not to answer this question Please select the resources that you would like help with: None Currently or been in a relationship where the following occur: I choose not to answer THRIVE Score: 0 AUDIT C Alcohol Use Questionnaire (AUDIT-C) 1. How often do you have a drink containing alcohol?: Never Total Score: 0 OPAL-7 AMB Questionnaire OPAL-7 Date OPAL - 7 assessed: 10/14/24 Feeling nervous, anxious, or on edge: 1 = Several days Not being able to stop or control worryin = More than half the days Worrying too much about different things: 2 = More than half the days Trouble relaxin = More than half the days Being so restless that it is hard to sit still: 2 = More than half the days Becoming easily annoyed or irritable: 0 = Not at all Feeling afraid as if something awful might happen: 1 = Several days Total OPAL-7 score (0-4 normal; 5-9 mild; 10-14 moderate; 15-21 severe): 10 Source: Developed by Hoa Lofton Bigg, Simon Jacques and colleagues, with an educational carmina from [employer]. OPAL-7 Assessment Billing OPAL-7 Assessment Tool: OPAL-7 Assessment 20883 Review of Systems Const Reports no additional complaints Eyes Reports no additional complaints ENT Reports no additional complaints Card Reports as per HPI, Denies chest pain, Denies irregular heart rhythm, Denies lightheadedness and Denies dyspnea on exertion Resp Denies chest congestion, Denies pain on inspiration, Denies dyspnea on exertion and Denies wheezing GI Reports no additional complaints Details: Currently seen by Dr. Brandi Thomas at [facility] with Mirena IUD recently inserted 10/03/2024, per patient, copy of last Pap results requested Reports no additional complaints Musc Reports as per HPI Skin/Breast Reports as per HPI Neuro Reports no additional complaints Psych Reports as per HPI Endo Reports no additional complaints Nicolas/Lymph Reports no additional complaints Aller/Immun Denies wheezing Physical exam (Primary Care) Vital Signs: Last Vital Signs Temp 98.3 F 10/14/24 13:29 Resp 16 10/14/24 13:29 BP 110/70 10/14/24 13:29 BMI result Body Mass Index 18.0 Tobacco/Smoking Status: Tobacco use Status Tobacco use date assessed 10/14/24 10/14/24 13:18 Patient Tobacco Use Status Never used Tobacco 10/14/24 13:18 e-Cigarette/Vaping Use Never Used 10/14/24 13:18 PHQ-9: PHQ-9 Score PHQ-9: Total score 2 10/14/24 13:34 Depression Screening Interpretation: Negative Thrive Assessment: Date of Thrive Assessment Date Thrive assessed 10/14/24 10/14/24 13:18 Currently or been in a relationship where the following occur: I choose not to answer Advance Care Planning discussion: Completed/Scanned Date of discussion: 10/14/24 Who was present: Patient Forms completed: Health Care Proxy Time spent: 16-45 minutes Actual minutes spent: 2 Const Other: Alert oriented x3, no acute distress noted, ambulatory normal gait HENMT Mouth: Normal oral and palatal mucosa present, tongue normal, oropharynx normal and moist mucous membranes Eyes General: appearance normal, both eyes and all related structures Neck Neck: Yes normal visual inspection, Yes full ROM and Yes no lymphadenopathy Thyroid: Thyroid normal Chest Chest palpation & inspection: normal inspection of the chest Breast/axilla inspection: normal inspection of the breasts Breast/axilla palpation: abnormal palpation of the breast At 1 o'clock position left breast Resp Auscultation: clear to auscultation bilaterally Cardio Other: S1-S2 present, regular rate and rhythm GI Other: Normal bowel sounds, soft, nontender General: Yes no CVA tenderness and Yes deferred (Seen by Dr. Brandi Thomas earlier this month, per patient) Back/Spine/Pelvis Back: no CVA tenderness Skin General skin exam: no rashes or lesions noted Neuro General: tone normal, moves all extremities, Normal light touch and pain sensation, no focal motor deficits and CN's II-XI intact bilaterally Extrem General: Yes full ROM, Yes no joint enlargement, Yes no clubbing, cyanosis or edema, Yes no calf tenderness and Yes normal gait Psych Appearance: grossly normal and well kempt Mental Status: mental status grossly normal Speech and movement: Normal speech and movement present Affect: normal affect Attitude: cooperative Thought process: Normal thought process present Coding Level of Care Code Est Pt Prev Care 18-39y(77236) Diagnoses Annual visit for general adult medical examination with abnormal findings Z00.01 Mass of upper outer quadrant of left breast N63.21 Breast mass location: upper outer quadrant Family history of lupus erythematosus Z84.0 Encounter for counseling regarding advance directives Z71.89 Intermittent palpitations R00.2 Generalized anxiety disorder F41.1 Additional Codes PHQ-9 - 76697 - PHQ-9 Billing: Yes ([id number]) OPAL-7 Assessment Billing - OPAL-7 Assessment Tool: OPAL-7 Assessment 92583 ([id number]) Vital Signs *Quality* - Advance Care Planning discussion: Completed/Scanned ([id number]) Vital Signs *Quality* - Time spent: 16-45 minutes ([id number]) Assessment & Plan Assessment & Plan (1) Annual visit for general adult medical examination with abnormal findings: Code(s): Z00.01 - Encounter for general adult medical examination with abnormal findings Plan: Will check appropriate labs. Continue regular dental visit every 6 months and regular eye exams, at least every 2 years. Take adequate calcium in diet and vitamin-D 3 at 2000 IU per cap once a day, in addition to weight-bearing exercises to help maintain good muscle tone and weight control. Instructed to do self-breast exam, palpable lump again palpated on upper outer aspect of left breast at 1 o'clock position, ordered limited left breast ultrasound. Declined any vaccines at this time (2) Breast mass, left: Code(s): N63.20 - Unspecified lump in the left breast, unspecified quadrant Category: Medical Qualifiers: Breast mass location: upper outer quadrant Qualified Code(s): N63.21 - Unspecified lump in the left breast, upper outer quadrant Plan: Left breast ultrasound limited ordered (3) Family history of lupus erythematosus: Code(s): Z84.0 - Family history of diseases of the skin and subcutaneous tissue Category: Medical Plan: Will check SHYLA, sed rate and CRP (4) Encounter for counseling regarding advance directives: Code(s): Z71.89 - Other specified counseling Plan: Initiated the conversation about Advanced Directives. Advanced Directives help patients prepare for current and future decisions about their medical treatment and place of care. Discussed with patient that it is a process where a patients current condition and prognosis are reviewed, their wishes for information regarding their illness are elicited, and likely medical dilemmas are presented and options discussed. Healthcare proxy form completed The form can be amended as needed, reviewed yearly and make changes as needed (5) Intermittent palpitations: Code(s): R00.2 - Palpitations Plan: , ordered CBC and TSH with reflex free T4 (6) Generalized anxiety disorder: Code(s): F41.1 - Generalized anxiety disorder Category: Medical Plan: Referred to Kristen, our certified mental health coordinator, for assistance in getting in an appointment for therapy, does not want to start any medication at present time Orders: Orders US breast LT limited Today N63.20 - Unspecified lump in the left breast, unspecified quadrant CRP High Sensitivity Today F41.1 - Generalized anxiety disorder, R00.2 - Palpitations, Z00.01 - Encounter for general adult medical examination with abnormal findings, Z13.1 - Encounter for screening for diabetes mellitus, Z13.220 - Encounter for screening for lipoid disorders, Z71.89 - Other specified counseling, Z84.0 - Family history of diseases of the skin and subcutaneous tissue Hemoglobin and Hematocrit Today F41.1 - Generalized anxiety disorder, R00.2 - Palpitations, Z00.01 - Encounter for general adult medical examination with abnormal findings, Z13.1 - Encounter for screening for diabetes mellitus, Z13.220 - Encounter for screening for lipoid disorders, Z71.89 - Other specified counseling, Z84.0 - Family history of diseases of the skin and subcutaneous tissue Alanine Aminotransferase Today F41.1 - Generalized anxiety disorder, R00.2 - Palpitations, Z00.01 - Encounter for general adult medical examination with abnormal findings, Z13.1 - Encounter for screening for diabetes mellitus, Z13.220 - Encounter for screening for lipoid disorders, Z71.89 - Other specified counseling, Z84.0 - Family history of diseases of the skin and subcutaneous tissue Vitamin D 25-OH Total Today F41.1 - Generalized anxiety disorder, R00.2 - Palpitations, Z00.01 - Encounter for general adult medical examination with abnormal findings, Z13.1 - Encounter for screening for diabetes mellitus, Z13.220 - Encounter for screening for lipoid disorders, Z71.89 - Other specified counseling, Z84.0 - Family history of diseases of the skin and subcutaneous tissue SHYLA Reflex Titer and Pattern Today F41.1 - Generalized anxiety disorder, R00.2 - Palpitations, Z00.01 - Encounter for general adult medical examination with abnormal findings, Z13.1 - Encounter for screening for diabetes mellitus, Z13.220 - Encounter for screening for lipoid disorders, Z71.89 - Other specified counseling, Z84.0 - Family history of diseases of the skin and subcutaneous tissue Erythrocyte Sedimentation Rate Today F41.1 - Generalized anxiety disorder, R00.2 - Palpitations, Z00.01 - Encounter for general adult medical examination with abnormal findings, Z13.1 - Encounter for screening for diabetes mellitus, Z13.220 - Encounter for screening for lipoid disorders, Z71.89 - Other specified counseling, Z84.0 - Family history of diseases of the skin and subcutaneous tissue Lipid Panel Today F41.1 - Generalized anxiety disorder, R00.2 - Palpitations, Z00.01 - Encounter for general adult medical examination with abnormal findings, Z13.1 - Encounter for screening for diabetes mellitus, Z13.220 - Encounter for screening for lipoid disorders, Z71.89 - Other specified counseling, Z84.0 - Family history of diseases of the skin and subcutaneous tissue Aspartate Amino Transferase Today F41.1 - Generalized anxiety disorder, R00.2 - Palpitations, Z00.01 - Encounter for general adult medical examination with abnormal findings, Z13.1 - Encounter for screening for diabetes mellitus, Z13.220 - Encounter for screening for lipoid disorders, Z71.89 - Other specified counseling, Z84.0 - Family history of diseases of the skin and subcutaneous tissue Basic Metabolic Panel Fasting Today F41.1 - Generalized anxiety disorder, R00.2 - Palpitations, Z00.01 - Encounter for general adult medical examination with abnormal findings, Z13.1 - Encounter for screening for diabetes mellitus, Z13.220 - Encounter for screening for lipoid disorders, Z71.89 - Other specified counseling, Z84.0 - Family history of diseases of the skin and subcutaneous tissue TSH reflex Free T4 Today F41.1 - Generalized anxiety disorder, R00.2 - Palpitations, Z00.01 - Encounter for general adult medical examination with abnormal findings, Z13.1 - Encounter for screening for diabetes mellitus, Z13.220 - Encounter for screening for lipoid disorders, Z71.89 - Other specified counseling, Z84.0 - Family history of diseases of the skin and subcutaneous tissue
[2024-10-14 13:29] VITALS: BP 110/70; PULSE 69; RESP 16; TEMP 36.8; O2SAT 98; BMI 18.0
--- OUTSIDE RECORDS SUMMARY | 2024-10-14 15:02 | XMS_ITS | Clinical Summary ---
Author Organization [facility] [address] [place] [address] [place] [address] Phone Care Team Providers Care Rubber Ball Finisher Name Role Phone Physician, No Pcp Primary Care Provider Unavaila ble Allergies No known active allergies Medications levonorgestreL (MIRENA) 21 mcg/24hr (up to 8 yrs) 52 mg IUD 1 Each by Intrauterine route Once. 2 07/08/19 Active Active Problems Problem Noted Date Diagnosed Date Cyst of left breast 05/27/2024 Encounters Date Type Department Care Team Description 10/03/2024 10:15 AM EDT Office Visit Obstetrics and Gynecology - [address] [phone] Brandi Meyers MD IUD (intrauterine device) in place (Primary Dx) 09/11/2024 Telephone Obstetrics and Gynecology [address] [phone] Brandi Meyers MD Contraception 08/29/2024 10:15 AM EDT Procedure visit Obstetrics and Gynecology - [address] [phone] Brandi Meyers MD Consultation for sterilization (Primary Dx); examination or test, negative result from Last 3 Months Surgical History Surgery [...] Date Smoking Tobacco: Never Smokeless Tobacco: Never Tobacco Cessation:Counseling Given: Not Answered Alcohol Use Standard Drinks/Week Comments Never 0 [...] Sign Reading Time Taken Comments Blood Pressure 106/70 10/03/2024 10:22 AM EDT Pulse 68 10/03/2024 10:22 AM EDT Temperature - - Respiratory Rate 16 10/03/2024 10:22 AM EDT Oxygen Saturation - - Inhaled Oxygen Concentration - - Weight 48 kg (105 lb 12.8 oz) 10/03/2024 10:22 A M EDT Height 162.6 cm (5' 4 ) 10/03/2024 10:22 AM EDT Body Mass Index 18.16 10/03/2024 10:22 AM EDT Plan of Treatment Health Maintenance Due Date Last Done Comments COVID-19 Vaccine (#1) 2006 HPV Vaccines (1 - Risk 3-dos e series) 01/26/2012 Meningococcal B Vaccine (1 o f 2 - Standard) 2017 DTaP,Tdap,and Td Vaccines [...] Influencers of Health Screening 05/21/2022 Influenza Vaccine (Season Ended) 2025 Gonorrhea/Chlamydia Screening 05/20/2025, 08/03/2021 Cervical Cancer Screening: [...] Procedure Name Priority Date/Time Associated Diagnosis Comments POC , URINE DIAGNOSTIC Routine 08/29/2024 10:04 AM EDT examination or test, negative result PAP SMEAR Routine 05/27/2024 4:07 PM EST Screening for cervical cancer CHLAMYDIA TRACHOMATIS AND NEISSERIA GONORRHOEAE PCR Routine 05/20/2024 4:16 PM EST Breakthrough bleeding with IUD Abnormal uterine bleeding from Last 3 Months or Most Recently Relevant to Health Maintenance Results * (ABNORMAL) POC , urine manually resulted (08/29/2024 10:04 AM EDT) HCG, Ur POC Negative Negative POC hCG Int QC Pass? Yes Yes Urine Urine specimen obtained by clean catch procedure / Unknown 08/29/2024 10:04 AM EDT Brandi Meyers MD POINT OF CARE TEST ENTER/ED IT ORDERABLES Final Result * Pap smear (05/27/2024 4:07 PM EST) Interpretation Negative for intraepithelial lesion or malignancy 06/03/2024 3:[address] [facility] General Categorization Negative 06/03/2024 3:16 PM EST [facility] LMP 05/17/2024 06/03/2024 3:16 PM [facility] Specimen Adequacy Satisfactory for evaluation, endocervical/cota sformation zone component absent 06/03/2024 3:16 PM [facility] Pap Methodology Liquid Based Pap Test 06/03/2024 3:16 PM [facility] Disclaimer The Pap test is a screening test which carries an inherent false negative rate. These test results should be correlated with the patient's clinical findings and history. This Pap test was processed using an automated screening system. Technical cytopathology services provided by [facility], at [address] [place] [id number] (CLIA # [id number]/Brenton Arrington MD, Automation Software Engineer.) 06/03/2024 3:16 PM [facility] Console Pap Interpretation Reported 06/03/2024 3:16 PM [facility] Brushing/Spatula Cervix uteri structure / Unknown 05/27/2024 4:07 PM EST 05/27/2024 4:07 PM EST Brandi Meyers MD LAB CYTOLOGY ORDERABLES Fin al Result [facility] [address] [place] [address], [place] [phone] * Chlamydia trachomatis and Neisseria gonorrhoeae molecular study (05/20/2024 4:16 PM EST) Neisseria gonorrhoeae PCR Negative Negative LAB MOLECULAR DIAGNOSTICS METHOD 05/21/2024 9:58 AM [facility] Chlamydia trachomatis PCR Negative Negative LAB MOLECULAR DIAGNOSTICS METHOD 05/21/2024 9:58 AM [facility] Swab Endocervical structure / Unknown Non-blood Collection / Unknown 05/20/2024 4:16 PM EST 05/20/2024 4:16 PM EST us Shannon Suazo CNM LAB MICROBIOLOGY - GENE RAL ORDERABLES Final Result [facility] [address] [place] [address], from Last 3 Months or Most Recently Relevant to Health Maintenance Insurance MEDICARE MEDICAID - [place] Care Teams Rubber Ball Finisher Relationship Specialty Start Date End Date Physician, No Pcp PCP - General 07/02/24
--- OUTSIDE RECORDS SUMMARY | 2024-10-14 15:02 | XMS_ITS | Clinical Summary ---
Author Organization [employer] Address [address] [facility] [address] [place] [address] Care Team Providers Care Shirt Sewer Name Role Phone Unavailable Primary Care Provider Unavailabl e Allergies No known active allergies Medications No known medications Active Problems No known active problems Encounters Date Type Department Care Team Description 09/17/2024 10:00 AM EDT Office Visit [facility]ULT [facility] [address] [place] [address] Kunal Turner Dental calculus (Primary Dx); Dental caries from Last 3 Months Social History Tobacco Use Types Packs/Day Years Used Date Smoking Tobacco: Never Passive Smoke Exposure: Never Smokeless Tobacco: Never Tobacco Cessation:Counseling Given: Not Answered Comments Unknown Sex and Gender Information Value Date Recorded Sex Assigned at Female 01/15/2024 8:08 AM EDT Legal Sex Female 8:07 AM EDT Gender Identity Female 01/15/2024 8:08 AM EDT Sexual Orientation Straight 01/15/2024 8: 13 AM EDT Last Filed Vital Signs Vital Sign Reading Time Taken Comments Blood Pressure 122/66 09/17/2024 9:42 AM EDT Pulse 65 09/17/2024 9:42 AM EDT Temperature - - Respiratory Rate - - Oxygen Saturation - - Inhaled Oxygen Concentration - - Weight - - Height - - Body Mass Index - - Plan of Treatment Health Maintenance Due Date Last Done Comments Chlamydia and Gonorrhea Screening 2001 Depression Screening 2001 HIV Screening 2001 SDOH Screening 2001 Alcohol/Substance Use Screening 2013 Family Planning (PISQ) 01/26/2016 HPV Vaccines (1 - 3-dose series) 01/26/2016 Hepatitis C Screening 2019 DTaP/Tdap/Td Vaccines (1 - Tdap) 01/26/2020 Hepatitis B Vaccines (1 of 3 - 19+ 3-dose series) 01/26/2020 Pap Smear 2022 COVID-19 Vaccine (1 - 2023-2 5 season) 2024 Influenza Vaccine (#1) 2024 Dental Oral Exam 03/20/2025 09/17/2024 Dental Prophylaxis 03/20/2025 09/17/2024 Tobacco Screening 09/17/2025 09/17/2024 Dental X-Ray: Bitewings 09/18/2025 09/18/19 25, 01/15/2024 Dental X-Ray: Full Mouth 01/15/2027 01/15/2024 Zoster Vaccines (1 of 2) 2051 RSV Patients and Patients Aged 60 years or older (1 - [...] age to complete this topic Pneumococcal Vaccine: Pediatrics (0 to 5 Years) and At-Risk Patients (6 to 49) Years) Aged Out No longer eligible b ased on patient's age to complete this topic RSV under 20 months Aged Out No longe r eligible based on patient's age to complete this topic Rotavirus Vaccines Aged Out No longer eligible based on patient's age to complete this topic Procedures Procedure Name Priority Date/Time Associated Diagnosis Comments PERIODIC ORAL EVALUATION - ESTABLISHED PATIENT Routine 09/17/2024 10:00 AM EDT Dental caries INTRAORAL - PERIAPICAL EACH ADDITIONAL RADIOGRAPHIC IMAGE Routine 09/17/2024 10:00 AM EDT Dental caries INTRAORAL - PERIAPICAL FIRST RADIOGRAPHIC IMAGE Routine 09/17/2024 10:00 AM EDT Dental caries ORAL HYGIENE INSTRUCTIONS Routine 2024 10:00 AM EDT Dental caries BITEWINGS - 4 RADIOGRAPHIC IMAGES Routine 09/17/2024 10:00 AM EDT Dental caries Full PROPHYLAXIS - ADULT Routine 025 10:00 AM EDT Dental caries CASE PRESENTATION, DETAILED AND EXTENSIVE TREATMENT PLANNING Routine 09/17/2024 10:00 AM EDT Dental caries 31 SEALANT - PER TOOTH Routine 12:00 AM EDT 31 B COMPOSITE FILLING Routine 5 12:00 AM EDT 30 B COMPOSITE FILLING Routine 5 12:00 AM EDT 19 SEALANT - PER TOOTH Routine 5 12:00 AM EDT 14 SEALANT - PER TOOTH Routine 5 12:00 AM EDT 3 SEALANT - PER TOOTH Routine 09/17/2024 12:00 AM EDT 19 B AMALGAM FILLING Routine 09/17/2024 12:00 AM EDT 18 B COMPOSITE FILLING Routine 5 12:00 AM EDT 20 SEALANT - PER TOOTH Routine 5 12:00 AM EDT PANORAMIC RADIOGRAPHIC IMAGE Routine 01/15/2024 11:30 AM EDT from Last 3 Months or Most Recently Relevant to Health Maintenance Insurance [facility] MEDICAID STAND ADULT
== END 2024-10-14 14:33 | disposition home or self-care (01) ==
LOC: HO.HMCC 13:04
PROVIDERS: PCP Internal Medicine; Visit Provider Internal Medicine
DX: Z00.00 Encounter for general adult medical examination without abnormal findings (principal); N63.21 Unspecified lump in the left breast, upper outer quadrant; Z84.0 Family history of diseases of the skin and subcutaneous tissue; Z71.89 Other specified counseling; R00.2 Palpitations; F41.1 Generalized anxiety disorder

== ENCOUNTER → 2024-10-14 13:03 | Outpatient (BNVA) | payer MEDICARE, MEDICAID, SELFPAY | PROVIDERS: PCP Internal Medicine; Visit Provider Internal Medicine | DX: Z00.01 Encounter for general adult medical examination with abnormal findings (principal); N63.21 Unspecified lump in the left breast, upper outer quadrant; R00.2 Palpitations; F41.1 Generalized anxiety disorder; Z71.89 Other specified counseling | CPT/HCPCS: 96127; 99395 ==

== ENCOUNTER 2024-10-16 11:07 | Outpatient (REF) | payer MEDICARE, MEDICAID, SELFPAY ==
--- OUTSIDE RECORDS SUMMARY | 2024-10-16 12:59 | XMS_ITS | Clinical Summary ---
Author Organization [facility] [address] [place] [address] [place] [address] Phone Care Team Providers Care Case Operator Name Role Phone Physician, No Pcp Primary [...] EDT Office Visit Obstetrics and Gynecology - [address] [phone] Brandi Meyers MD IUD (intrauterine device) in place (Primary Dx) 09/11/2024 Telephone Obstetrics and Gynecology [address] [phone] Brandi Meyers MD Contraception 08/29/2024 10:15 AM EDT Procedure visit Obstetrics and Gynecology - [address] [phone] Brandi Meyers MD Consultation for sterilization (Primary [...] lesion or malignancy 06/03/2024 3:16 PM [facility] General Categorization Negative 06/03/2024 3:[address] [facility] LMP 05/17/2024 06/03/2024 3:[address] [facility] Specimen Adequacy Satisfactory for evaluation, endocervical/cota sformation zone component absent 06/03/2024 3:[address] [facility] Pap Methodology Liquid Based Pap Test 06/03/2024 3:[address] [facility] Disclaimer The Pap test is a screening test which carries an inherent false negative rate. These test results should be correlated with the patient's clinical findings and history. This Pap test was processed using an automated screening system. Technical cytopathology services provided by [facility], at [address] [place] [id number] (CLIA # [id number]/Brenton Arrington MD, Sales Incentive Analyst.) 06/03/2024 3:[address] [facility] Console Pap Interpretation Reported 06/03/2024 3:[address] [facility] Brushing/Spatula Cervix uteri structure / Unknown 05/27/2024 4:07 PM EST 05/27/2024 4:07 PM EST Brandi Meyers MD LAB CYTOLOGY ORDERABLES Fin al Result [facility] [address] [place] [address], [place] [phone] * Chlamydia trachomatis and Neisseria gonorrhoeae molecular study (05/20/2024 4:16 PM EST) Neisseria gonorrhoeae PCR Negative Negative LAB MOLECULAR DIAGNOSTICS METHOD 05/21/2024 9:[address] [facility] Chlamydia trachomatis PCR Negative Negative LAB MOLECULAR DIAGNOSTICS METHOD 05/21/2024 9:[address] [facility] Swab Endocervical structure / Unknown Non-blood Collection / Unknown 05/20/2024 4:16 PM EST 05/20/2024 4:16 PM EST us Shannon Suazo CNM LAB MICROBIOLOGY - GENE RAL ORDERABLES Final Result [facility] ([facility] [address] [place] [address], from Last 3 Months or Most Recently Relevant to Health Maintenance Insurance MEDICARE MEDICAID - [place] Care Teams Case Operator Relationship Specialty Start Date End Date Physician, No Pcp PCP - General 07/02/24
--- OUTSIDE RECORDS SUMMARY | 2024-10-16 12:59 | XMS_ITS | Clinical Summary ---
Author Organization [employer] Address [address] [facility] [address] [place] [address] Care Team Providers Care Meat Boner Name Role Phone Unavailable Primary Care Provider Unavailabl e Allergies No known active allergies Medications No known medications Active Problems No known active problems Encounters Date Type Department Care Team Description 09/17/2024 10:00 AM EDT Office Visit [facility] AD[facility] [address] [place] [address] Kunal Turner Dental calculus (Primary Dx); Dental [...] Most Recently Relevant to Health Maintenance Insurance [facility] MEDICAID STAND ADULT
[2024-10-16 13:14] LABS: Hematocrit 40.6 % (37.0-47.0); Hemoglobin 13.4 g/dl (12.0-16.0)
[2024-10-16 13:42] LABS: Alanine Aminotransferase 24 U/L (0-31); Anion Gap 11 (12-20); Aspartate Amino Transferase 25 U/L (5-31); Blood Urea Nitrogen 11 mg/dL (9-16); Calcium 9.6 mg/dL (8.4-10.2); Carbon Dioxide 25 mmol/L (22-29); Chloride 107 mmol/L (96-108); Cholesterol 135 mg/dL (<200); Estimated Glomerular Filt Rate > 60; Glucose Fasting 84 mg/dL (60-99); HDL Cholesterol 53 mg/dL (>40); LDL Cholesterol Calculated 73 mg/dL (<100); Potassium 4.3 mmol/L (3.3-5.1); Sodium 139 mmol/L (135-145); Triglycerides 46 mg/dL (<150)
[2024-10-16 13:51] LABS: TSH reflex Free T4 1.04 uIU/mL (0.32-4.0); Vitamin D 25-OH Total 32.8 ng/mL (>30)
[2024-10-16 13:52] LABS: Erythrocyte Sedimentation Rate 5 MM/HR (0-20)
[2024-10-17 07:05] LABS: CRP High Sensitivity 1.2 mg/L
[2024-10-21 07:03] LABS: Anti Nuclear Antibody Pattern Nuclear, Homogeneous; Anti Nuclear Antibody Screen POSITIVE (NEGATIVE)
== END 2024-10-16 11:08 | disposition home or self-care (01) ==
LOC: HO.HMGCLDS 11:07
PROVIDERS: PCP Internal Medicine; Visit Provider Internal Medicine
DX: Z00.01 Encounter for general adult medical examination with abnormal findings (principal); Z71.89 Other specified counseling; Z13.220 Encounter for screening for lipoid disorders; Z13.1 Encounter for screening for diabetes mellitus; F41.1 Generalized anxiety disorder; R00.2 Palpitations; Z84.0 Family history of diseases of the skin and subcutaneous tissue; Z13.6 Encounter for screening for cardiovascular disorders
CPT/HCPCS: 36415; 80048; 80061; 82306; 84443; 84450; 84460; 85014; 85018; 85652; 86038; 86039; 86141

== ENCOUNTER 2024-11-12 07:56 | Outpatient (REF) | payer MEDICARE, MEDICAID, SELFPAY ==
--- NOTE | ~2024-11-12 | US_ITS ---
EXAMINATION: US DIAGNOSTIC ULTRASOUND BREAST, LEFT CLINICAL INFORMATION: Palpable left breast.. COMPARISON: Comparison is made with relevant prior imaging. TECHNIQUE: Ultrasound of the breast is performed with real-time laboy scale imaging and color Doppler. FINDINGS: Targeted color Doppler ultrasound scanning in the area of palpable lump in the upper outer left breast at 1:00 4 7 m from nipple demonstrates a hypoechoic oval parallel circumscribed solid mass with internal vascular flow measuring 34 x 15 x 30 mm this has increased in size from prior ultrasounds. Results are discussed with the patient at time of visit. US/US breast LT limited mamm only IMPRESSION: Hypoechoic oval solid mass measuring up to 34 mm increase in size from prior ultrasounds. Recommend ultrasound-guided core needle biopsy for histology confirmation at this time. The findings and recommendations were discussed with the patient and the procedure will be scheduled. ASSESSMENT: BI-RADS 4: Suspicious RECOMMENDATION: Biopsy recommended at this time. Electronically signed by: Татьяна Downs DO 11/12/2024 09:59 AM EDT
--- OUTSIDE RECORDS SUMMARY | 2024-11-12 07:58 | XMS_ITS | Clinical Summary ---
Author Organization [facility] [address] [place] [address] [place] [address] Phone Care Team Providers Care Carving Machine Operator Name Role Phone Physician, No Pcp [...] EDT Office Visit Obstetrics and Gynecology - [address] [phone] Brandi Meyers MD IUD (intrauterine device) in place (Primary Dx) 09/11/2024 Telephone Obstetrics and Gynecology [address] [phone] Brandi Meyers MD Contraception 08/29/2024 10:15 AM EDT Procedure visit Obstetrics and Gynecology - [address] [phone] Brandi Meyers MD Consultation for sterilization (Primary [...] 10/03/2024 10:22 AM EDT Plan of Treatment Upcoming Encounters Date Type Department Care Team (Late st Contact Info) Description 11/18/2024 10:00 AM EDT Office Visit Obstetrics and Gynecology [address] [phone] Brandi Meyers MD [address] [place] [phone] Health Maintenance Due Date Last Done Comments [...] lesion or malignancy 06/03/2024 3:16 PM EST [facility] General Categorization Negative 06/03/2024 3:16 PM [facility] LMP 05/17/2024 06/03/2024 3:16 PM [facility] Specimen Adequacy Satisfactory for evaluation, endocervical/cota sformation zone component absent 06/03/2024 3:16 PM [facility] Pap Methodology Liquid Based Pap Test 06/03/2024 3:16 PM [facility] Disclaimer The Pap test is a screening test which carries an inherent false negative rate. These test results should be correlated with the patient's clinical findings and history. This Pap test was processed using an automated screening system. Technical cytopathology services provided by [facility], at [address] [place] [address] (CLIA # [id number]/Brenton Arrington MD, Cans Vacuum Tester.) 06/03/2024 3:16 PM [facility] Console Pap Interpretation Reported 06/03/2024 3:16 PM [facility] Brushing/Spatula Cervix uteri structure / Unknown 05/27/2024 4:07 PM EST 05/27/2024 4:07 PM EST us Brandi Meyers MD LAB CYTOLOGY ORDERABLES Fin al Result [facility]) [facility] [address] [place] [address], * Chlamydia trachomatis and Neisseria gonorrhoeae molecular study (05/20/2024 4:16 PM EST) Neisseria gonorrhoeae PCR Negative Negative LAB MOLECULAR DIAGNOSTICS METHOD 05/21/2024 9:58 AM EST [facility] Chlamydia trachomatis PCR Negative Negative LAB MOLECULAR DIAGNOSTICS METHOD 05/21/2024 9:58 AM EST [facility] Swab Endocervical structure / Unknown Non-blood Collection / Unknown 05/20/2024 4:16 PM EST 05/20/2024 4:16 PM EST us Shannon Suazo CNM LAB MICROBIOLOGY - GENE RAL ORDERABLES Final Result [facility] ([facility] [address] [place] [address], from Last 3 Months or Most Recently Relevant to Health Maintenance Insurance MEDICARE MEDICAID - [place] Care Teams Carving Machine Operator Relationship Specialty Start Date End Date Physician, No Pcp PCP - General 07/02/24
== END 2024-11-12 07:57 | disposition home or self-care (01) ==
LOC: HO.MAMMO 07:56
PROVIDERS: PCP Internal Medicine; Visit Provider Internal Medicine
DX: N63.21 Unspecified lump in the left breast, upper outer quadrant (principal)
CPT/HCPCS: 76642

== ENCOUNTER → 2024-11-12 07:59 | Outpatient (BNV) | payer MEDICARE, MEDICAID, SELFPAY | PROVIDERS: PCP Internal Medicine; Visit Provider Internal Medicine | DX: N63.21 Unspecified lump in the left breast, upper outer quadrant (principal) | CPT/HCPCS: 76642 ==